=== PATIENT | female | born 1935 | race Caucasian/White ===

== ENCOUNTER 2017-11-09 17:15 | Emergency (ER) | payer MEDICARE ==
[~2017-11-09] VITALS: Ht 160 cm; Wt 72.9 kg
[~2017-11-09 17:15] MED LIST: CEPH500C3 PO; MECL-62 PO; METO25CR PO; MEVA40TA6 PO; OMEP20CA5 PO; ZOFR4TAB3 SL
[2017-11-09 17:32] VITALS: BP 198/99; PULSE 68; RESP 16; TEMP 98.9; O2SAT 96
[2017-11-09] MEDS ORDERED: LOVA40TA PO (17:56)
[2017-11-09] MEDS ORDERED: METO25TA3 PO (17:56)
[2017-11-09] MEDS ORDERED: OMEP20TA93 PO (17:56)
--- NOTE | 2017-11-09 18:10 | PD ---
HPI Chief Complaint: Flank/Kidney Pain Time Seen by Provider: 18:07 Travel History International Travel<30 days: No Contact w/Intl Traveler<30days: No Traveled to known affect area: No History of Present Illness HPI Patient presents with complaints of lower back pain and lower abdominal pain which started yesterday afternoon his persisted throughout the day. Denies nausea or vomiting but states she has not been hungry. Denies any urinary or bowel symptoms. Reports a history of frequent asymptomatic UTIs. Denies any hematuria. Denies any frequency on urination. Denies any burning on urination. Denies any history of kidney stones. Denies any history of heavy lifting misstep or falls. Denies any fever. Denies any new chest pain shortness of breath. Pain is aggravated with movement and relieved with rest. Denies colicky pain. PFSH Past Medical History Anemia: Yes Arthritis: Yes Anxiety: Yes Depression: Yes Heart Rhythm Problems: No Cancer: Yes (BREAST) Cardiac Catheterization: No Cardiovascular Problems: Yes High Cholesterol: Yes Chemotherapy: Yes Congestive Heart Failure: No Diabetes: No Diminished Hearing: No Endocrine: No Gastrointestinal Disorders: No GERD: Yes Glaucoma: No Genitourinary: No Hepatitis: No Hiatal Hernia: No Hypertension: Yes Immune Disorder: No Implanted Vascular Access Dvce: Yes Medical other: Yes (DIVERTICULOSIS, OSTEOPENIA) Musculoskeletal: Yes Neurologic: No Psychiatric: No Reproductive: Yes (HYSTERECTOMY) Respiratory: No Myocardial Infarction: No Thyroid Disease: No Triglycerides - High: Yes Ulcer: Yes (HX) Tetanus Vaccination: < 5 Years Influenza Vaccination: Yes PNEUMOCCOCAL Vaccine (Year): 1 ?: Not Menopausal: Yes Past Surgical History Abdominal Surgery: Yes (CHOLECYSTECTOMY) Body Medical Devices: CLOVER EYE LENS Cholecystectomy: Yes Coronary Artery Bypass Graft: No Genitourinary Surgery: Yes (HYSTERECTOMY) Gynecologic Surgery: Yes (HYSTERECTOMY 1987) Hysterectomy: Yes Joint Replacement: Yes (LT KNEE) Mastectomy: Yes (RIGHT BREAST) Pacemaker: No Thoracic Surgery: Yes (RIGHT MASTECTOMY, LUMPECTOMY LEFT BREAST) Other Surgery: Yes Social History Alcohol Use: No Tobacco Use: No Substance Use: No Allergies-Medications (Allergen,Severity, Reaction): Coded Allergies: codeine (Unverified Allergy, Unknown, Nausea/Vomiting, 11/09/17) Reported Meds & Prescriptions Reported Meds & Active Scripts Active Reported Omeprazole 20 Mg Tab 20 Mg PO HS Lovastatin 40 Mg Tab 40 Mg PO HS Metoprolol Tartrate 25 Mg Tab 25 Mg PO TID Review of Systems General / Constitutional: No: Fever Eyes: No: Visual changes HENT: No: Headaches Cardiovascular: No: Chest Pain or Discomfort Respiratory: No: Shortness of Breath Gastrointestinal: Positive: Abdominal Pain Genitourinary: No: Dysuria Musculoskeletal: Positive: Pain Skin: No Rash Neurologic: No: Weakness Psychiatric: No: Depression Endocrine: No: Polydipsia Hematologic/Lymphatic: No: Easy Bruising Physical Exam Narrative GENERAL: Well-nourished, well-developed patient. SKIN: Focused skin assessment warm/dry. HEAD: Normocephalic. EYES: No scleral icterus. No injection or drainage. NECK: Supple, trachea midline. No JVD or lymphadenopathy. CARDIOVASCULAR: Regular rate and rhythm without murmurs, gallops, or rubs. RESPIRATORY: Breath sounds equal bilaterally. No accessory muscle use. GASTROINTESTINAL: Abdomen soft, diffusely tender around the pubic symphysis, nondistended. MUSCULOSKELETAL: No cyanosis, or edema. BACK: Nontender without obvious deformity. No CVA tenderness. Examination lumbar sacral spine reveals no midline tenderness bilateral paraspinous pain Data Data Last Documented VS Vital Signs Date Time Temp Pulse Resp B/P (MAP) Pulse Ox O2 Delivery O2 Flow Rate FiO2 11/09/17 18:52 62 16 169/79 (109) 96 Room Air 11/09/17 17:32 98.9 Orders Orders Urinalysis - C+S If Indicated (11/09/17 18:07) Urine Culture (11/09/17 18:09) Labs Laboratory Tests Test 11/09/17 18:09 Urine Color YELLOW Urine Turbidity CLEAR Urine pH 6.0 Urine Specific Sunflower 1.008 Urine Protein NEG mg/dL Urine Glucose (UA) NEG mg/dL Urine Ketones NEG mg/dL Urine Occult Blood TRACE Urine Nitrite POS Urine Bilirubin NEG Urine Leukocyte Esterase MOD Urine RBC 0-3 /hpf Urine WBC 9-14 /hpf Urine WBC Clumps FEW Urine Squamous Epithelial Cells 0-5 /hpf Urine Bacteria MANY /hpf Microscopic Urinalysis Comment CULTURE INDICATED MDM Medical Decision Making Medical Screen Exam Complete: Yes Emergency Medical Condition: Yes Differential Diagnosis Lumbago, UTI, nephrolithiasis Narrative Course Assessment and plan discussed the patient and friend at bedside. Urinalysis noted Diagnosis Primary Impression: UTI (urinary tract infection) Qualified Codes: N39.0 - Urinary tract infection, site not specified; R31.9 - Hematuria, unspecified Additional Impression: Lumbago Qualified Codes: M54.5 - Low back pain Patient Instructions: General Instructions Additional Instructions: Encouraged nonsteroidal anti-inflammatories warm heat gentle stretching and strengthening and massage for her lower back pain. Antibiotic as prescribed. Encourage fluids and a cranberry supplement. Follow-up with PCP. Return emergent with any onset of new symptoms. Blood pressure noted, encouraged to observe blood pressure for evaluation with PCP. Continue regular medications. Med/Other Pt SpecificInfo: Prescription(s) given Scripts Sulfamethoxazole-Trimethoprim (Bactrim DS) 800-160 Mg Tab 1 TAB PO BID for Infection, #5 TAB 0 Refills Prov: Job Mejia MD 11/09/17 Disposition: 01 DISCHARGE HOME Condition: Good Job Mejia MD Nov 09, 2017 18:10
[2017-11-09 18:15] LABS: BILIRUBIN, URINE NEG (NEG); GLUCOSE,URINE NEG (NEG); KETONE, URINE NEG (NEG); NITRITE,URINE POS (NEG); URINE LEUKOCYTE ESTERASE MOD (NEG)
[2017-11-09 18:25] LABS: BLOOD, URINE TRACE (NEG); URINE COLOR YELLOW (YELLW/STRAW)
[2017-11-09 18:26] LABS: WHITE BLOOD CELL CLUMPS FEW
[2017-11-09 18:27] LABS: BACTERIA, URINE MANY /hpf; RBC, URINE 0-3 /hpf (0-3); SQUAMOUS EPITHELIAL CELL URINE 0-5 /hpf (0-5)
[2017-11-09 18:32] VITALS: BP 153/73; PULSE 66; RESP 16; O2SAT 96
[2017-11-09 18:52] VITALS: BP 169/79; PULSE 62; RESP 16; O2SAT 96
[2017-11-09] MEDS ORDERED: BACT800T5 PO (19:02)
== END 2017-11-09 19:21 | disposition home or self-care (01) ==
LOC: PHED 17:15
DX: N39.0 Urinary tract infection, site not specified (principal); B96.20 Unspecified Escherichia coli [E. coli] as the cause of diseases classified elsewhere; R31.9 Hematuria, unspecified; M54.5 Low back pain; E78.00 Pure hypercholesterolemia, unspecified; F32.9 Major depressive disorder, single episode, unspecified; F41.9 Anxiety disorder, unspecified; I10 Essential (primary) hypertension; K21.9 Gastro-esophageal reflux disease without esophagitis
CPT/HCPCS: 81001; 87077; 87086; 87186; 99283